=== PATIENT | female | born 1985 | race Two or more races ===

== ENCOUNTER → 2023-05-13 | Outpatient (CLI) | payer MEDICAID | END | disposition home or self-care (01) | LOC: Rad HDHVI 08:44 | PROVIDERS: ATTEND Internal Medicine Cardiovascular Disease | DX: Z01.818 Encounter for other preprocedural examination (principal); I51.7 Cardiomegaly | CPT/HCPCS: 93306 ==

== ENCOUNTER → 2023-05-17 | Outpatient (CLI) | payer MEDICAID ==
[~2023-05-17] VITALS: Ht 160 cm; Wt 110.7 kg
== END | disposition home or self-care (01) ==
LOC: Rad HDHVI 08:14
PROVIDERS: ATTEND Internal Medicine Cardiovascular Disease
DX: Z01.810 Encounter for preprocedural cardiovascular examination (principal)
CPT/HCPCS: 78452; 93017; 96374; A9500

== ENCOUNTER 2024-01-27 21:46 | Emergency (ER) | payer MEDICAID ==
[~2024-01-27] VITALS: Ht 160 cm; Wt 107.6 kg
[2024-01-27] MEDS: IPRATROPIUM BROM 0.5 MG/2.5ML INH SOL NEB ONE (22:14)
[2024-01-27] MEDS: ALBUTEROL SULF 2.5 MG/0.5ML(0.5%) NEB SOLN NEB ONE (22:14)
[2024-01-27] MEDS ORDERED: methylPREDNISolone SOD SUCC 125 MG/2 ML VL IV ONE (22:15)
[2024-01-27 23:02] LABS: Urine Bacteria None Seen /hpf (None Seen)
[2024-01-27 23:04] LABS: Basophils # (auto) 0 10 ^3/uL (0-0.2); Basophils % (auto) 0.3 % (0.0-2.0); Eosinophils # (auto) 0.3 10 ^3/uL (0-0.8); Eosinophils % (auto) 2.3 % (0.0-7.0); Hemoglobin 14.4 g/dL (12.2-16.2); Lymphocytes # (auto) 2.9 10 ^3/uL (0.4-5.4); Lymphocytes % (auto) 22.1 % (10.0-50.0); Mean Corpuscular Hemoglobin 31.2 pg (28.0-32.0); Mean Corpuscular Hgb Conc. 34.3 g/dL (32.0-36.0); Mean Corpuscular Volume 91.1 fL (80.0-100.0); Monocytes # (auto) 0.8 10 ^3/uL (0-1.3); Monocytes % (auto) 6.1 % (0.0-12.0); Neutrophils # (auto) 9.1 10 ^3/uL (1.6-8.6); Neutrophils % (auto) 69.2 % (37.0-80.0); Nucleated Red Blood Cells % 0.1 %; Platelet Count (auto) 328 10^3/uL (140-450); Red Blood Cells 4.61 10^6/uL (4.0-5.20); Red Cell Distribution Width 14.3 % (11.8-14.3); White Blood Cell 13.2 10^3/uL (4.4-10.8)
[2024-01-27 23:14] LABS: Urine Blood 3+ /uL (Negative); Urine Clarity Clear (Clear); Urine Color Light-Yellow (Yellow); Urine Protein, UAD Negative (Negative); Urine Urobilinogen Normal (Negative); Urine WBC 8 /hpf (0 - 5); Urine pH 6.5 (5.0-9.0)
[2024-01-27 23:22] LABS: Alanine Aminotransferase 17 U/L (7-40); Albumin 4.8 g/dL (3.2-4.8); Alkaline Phosphatase 71 U/L (46-116); Anion Gap 7 (5-15); Aspartate Aminotransferase 13 U/L (13-40); Bilirubin, Total 0.4 mg/dL (0.2-1.0); Blood Urea Nitrogen 18 mg/dL (9-23); Calcium 9.9 mg/dL (8.7-10.4); Carbon Dioxide 25 mmol/L (20-31); Chloride 106 mmol/L (98-107); Glucose 102 mg/dL (74-106); Potassium 3.6 mmol/L (3.5-5.1); Sodium 138 mmol/L (136-145); Total Protein 7.8 g/dL (5.7-8.2)
[2024-01-28 00:21] LABS: Base Excess 0.2 mmol/L (-2.0-3.0)
[2024-01-28] MEDS ORDERED: PRED20TA2 PO (01:30)
[2024-01-28] MEDS ORDERED: ALBU108A5 IN (01:30)
[2024-01-28] MEDS: methylPREDNISolone SOD SUCC 125 MG/2 ML VL IM ONE (02:17)
[2024-01-28 02:23] VITALS: BP 127/87; PULSE 92; RESP 16; TEMP 97.8; O2SAT 100
== END 2024-01-28 02:24 | disposition home or self-care (01) ==
LOC: ER 21:46
DX: J45.901 Unspecified asthma with (acute) exacerbation (principal); R10.2 Pelvic and perineal pain; R06.00 Dyspnea, unspecified; Z90.49 Acquired absence of other specified parts of digestive tract; Z90.89 Acquired absence of other organs; Z79.899 Other long term (current) drug therapy
CPT/HCPCS: 36415; 36600; 71045; 80053; 81001; 82805; 83605; 83735; 83880; 84702; 85025; 85379; 93005; 94640; 96372; 99285; J2919

== ENCOUNTER 2024-10-03 20:18 | Emergency (ER) | payer MEDICAID ==
[~2024-10-03] VITALS: Ht 160 cm; Wt 94.4 kg
[~2024-10-03 20:18] MED LIST: ALBU108A5 IN; PRED20TA2 PO
[2024-10-03 20:45] LABS: Basophils # (auto) 0.1 10 ^3/uL (0-0.2); Basophils % (auto) 0.5 % (0.0-2.0); Eosinophils # (auto) 0.2 10 ^3/uL (0-0.8); Eosinophils % (auto) 1.5 % (0.0-7.0); Hematocrit 43.5 % (36.0-46.0); Hemoglobin 14.4 g/dL (12.2-16.2); Lymphocytes # (auto) 3.9 10 ^3/uL (0.4-5.4); Lymphocytes % (auto) 28.7 % (10.0-50.0); Mean Corpuscular Hgb Conc. 33.1 g/dL (32.0-36.0); Mean Corpuscular Volume 87.6 fL (80.0-100.0); Monocytes # (auto) 0.7 10 ^3/uL (0-1.3); Monocytes % (auto) 4.9 % (0.0-12.0); Neutrophils # (auto) 8.7 10 ^3/uL (1.6-8.6); Neutrophils % (auto) 64.4 % (37.0-80.0); Platelet Count (auto) 321 10^3/uL (140-450); Red Blood Cells 4.97 10^6/uL (4.0-5.20); Red Cell Distribution Width 14.9 % (11.8-14.3); White Blood Cell 13.5 10^3/uL (4.4-10.8)
[2024-10-03 21:02] LABS: Alanine Aminotransferase 16 U/L (7-40); Albumin 4.7 g/dL (3.2-4.8); Alkaline Phosphatase 70 U/L (46-116); Anion Gap 9 (5-15); Aspartate Aminotransferase 17 U/L (<34); BUN/Creatinine Ratio 21.8 (10.0-20.0); Bilirubin, Total 0.4 mg/dL (0.2-1.0); Blood Urea Nitrogen 17 mg/dL (9-23); Calcium 9.4 mg/dL (8.7-10.4); Carbon Dioxide 25 mmol/L (20-31); Chloride 106 mmol/L (98-107); Glucose 93 mg/dL (74-106); Potassium 3.7 mmol/L (3.5-5.1); Sodium 140 mmol/L (136-145); Total Protein 7.8 g/dL (5.7-8.2)
[2024-10-03 21:13] LABS: Lipase 55 U/L (12-53)
--- NOTE | 2024-10-03 21:17 | ED.PDOC ---
History of Present Illness HPI Comments 39 y/o obese F presents with 1x day history of nonradiating, RUQ abdominal pain. Patient reports on progressively worsening, constant pain following initial unprovoked onset, last night. She reports only significant history of asthma, arthritis, partial thyroidectomy, and cholecystectomy she received 16x years ago. Patient denies having nausea, vomiting, diarrhea, constipation, urinary symptoms, fever, chills, or further associated symptoms. Chief Complaint: Abdominal Pain Time Seen by MD: 21:00 Reviewed Notes: Nurses Notes, Medications, Allergies Allergies: Coded Allergies: NO KNOWN ALLERGIES (Unverified , 01/27/24) Home Meds Active Scripts Gabapentin (Once-Daily) (Gabapentin) 300 Mg Tab, 300 MG PO Q6HP PRN, #60 TAB Prov:KIRA SINGH MD 10/03/24 Sulfamethoxazole W/Trimethopri (Bactrim Ds Tablet) 1 Tab Tb, 1 TAB PO BID for 7 Days, #14 TAB Prov:KIRA SINGH MD 10/03/24 Prednisone (Prednisone) 20 Mg Tab, 20 MG PO DAILY for 5 Days, #5 TAB Prov:VITO GREEN DO 01/28/24 Albuterol Sulfate (Albuterol Sulfate Hfa) 108 Mcg/Act Aer, 108 MCG IN Q4HPRN PRN for 5 Days, #1 AER Prov:VITO GREEN DO 01/28/24 Information Source: Patient Mode of Arrival: Ambulatory Severity: Moderate Timing: Hours Duration: Since onset Prehospital treatment: None Past Medical History PAST MEDICAL HISTORY: Arthritis, Asthma Surgical History: Cholecystectomy, Thyroidectomy (partial ) 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 Hx Family History Family History: Unknown Social History Smoker: Non-Smoker Alcohol: Denies ETOH Use Drugs: Denies Drug Use Lives In: Home All Other Systems: Reviewed and Negative (Comprehensive systems review obtained and negative except for what is stated in the HPI.) Physical Exam General Appearance: Mild Distress, Obese HEENT: Normal ENT Inspection, Pharynx Normal, TMs Normal Neck: Full Range of Motion, Non-Tender, Normal, Normal Inspection Respiratory: Chest Non-Tender, Lungs Clear, No Accessory Muscle Use, No Respiratory Distress, Normal Breath Sounds Cardiovascular: No Edema, No JVD, No Murmur, No Gallop, Normal Peripheral Pulses, Regular Rate/Rhythm Breast Exam: Deferred Gastrointestinal: No Organomegaly, Non Tender, No Pulsatile Mass, Normal Bowel Sounds, Soft Genitalia: Deferred Pelvic: Deferred Rectal: Deferred Extremities: No calf tenderness, Normal capillary refill, Normal inspection, Normal range of motion, Non-tender, No pedal edema Musculoskeletal : Apperance: Normal Neurologic: Alert, 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 Was a procedure done?: No Differential Dx Considerations may include: cholelithiasis, PUD, GERD, gastritis, gastroenteritis, viral syndrome, , nephrolithiasis, among others X-Ray, Labs, Meds, VS Vital Signs Date Time Temp Pulse Resp B/P (MAP) Pulse Ox O2 Delivery O2 Flow Rate FiO2 10/03/24 22:37 90 18 97 Room Air 10/03/24 22:37 97.8 90 18 114/57 (76) 97 97.8 10/03/24 21:00 97.9 99 16 108/41 (63) 98 97.9 Lab Test 10/03/24 21:12 10/03/24 20:36 Range/Units Urine Color Light-yellow Yellow Urine Clarity Clear Clear Urine pH 5.5 5.0-9.0 Urine Specific [place] 1.027 1.001-1.035 Urine Protein Negative Negative Urine Ketones Negative Negative Urine Blood Negative Negative /uL Urine Nitrite Negative Negative Urine Bilirubin Negative Negative Urine Urobilinogen Normal Negative mg/dL Urine Leukocyte Esterase 1+ Negative /uL Urine RBC 1 0 - 4 /hpf Urine Microscopic WBC 4 0-5 /HPF Urine Squamous Epithelial Cells Few <5 /hpf Urine Bacteria None seen None Seen /hpf Urine Glucose Normal Normal mg/dL White Blood Count 13.5 H 4.4-10.8 10^3/uL Red Blood Count 4.97 4.0-5.20 10^6/uL Hemoglobin 14.4 12.2-16.2 g/dL Hematocrit 43.5 36.0-46.0 % Mean Corpuscular Volume 87.6 80.0-100.0 fL Mean Corpuscular Hemoglobin 29.0 28.0-32.0 pg Mean Corpuscular Hemoglobin Concent 33.1 32.0-36.0 g/dL Red Cell Distribution Width 14.9 H 11.8-14.3 % Platelet Count 321 140-450 10^3/uL Mean Platelet Volume 8.4 6.9-10.8 fL Neutrophils (%) (Auto) 64.4 37.0-80.0 % Lymphocytes (%) (Auto) 28.7 10.0-50.0 % Monocytes (%) (Auto) 4.9 0.0-12.0 % Eosinophils (%) (Auto) 1.5 0.0-7.0 % Basophils (%) (Auto) 0.5 0.0-2.0 % Neutrophils # (Auto) 8.7 H 1.6-8.6 10 ^3/uL Lymphocytes # (Auto) 3.9 0.4-5.4 10 ^3/uL Monocytes # (Auto) 0.7 0-1.3 10 ^3/uL Eosinophils # (Auto) 0.2 0-0.8 10 ^3/uL Basophils # (Auto) 0.1 0-0.2 10 ^3/uL Nucleated Red Blood Cells 0.0 % Sodium Level 140 136-145 mmol/L Potassium Level 3.7 3.5-5.1 mmol/L Chloride Level 106 98-107 mmol/L Carbon Dioxide Level 25 20-31 mmol/L Anion Gap 9 5-15 Blood Urea Nitrogen 17 9-23 mg/dL Creatinine 0.78 0.550-1.02 mg/dL Glomerular Filtration Rate Calc 98 >90 mL/min BUN/Creatinine Ratio 21.8 H 10.0-20.0 Serum Glucose 93 74-106 mg/dL Calcium Level 9.4 8.7-10.4 mg/dL Total Bilirubin 0.4 0.2-1.0 mg/dL Aspartate Amino Transferase (AST) 17 <34 U/L Alanine Aminotransferase (ALT) 16 7-40 U/L Alkaline Phosphatase 70 46-116 U/L Total Protein 7.8 5.7-8.2 g/dL Albumin 4.7 3.2-4.8 g/dL Lipase 55 H 12-53 U/L Current Medications Medications (Trade) Dose Ordered Sig/Elfego Route Start Time Stop Time Status Last Admin Ondansetron HCl (Zofran Po) 4 mg ONCE ONCE PO 10/03/24 20:30 10/03/24 20:31 DC 10/03/24 22:36 Al Hydrox/Mg Hydrox/Simethicone (Maalox Plus) 30 ml ONCE ONCE PO 10/03/24 20:30 10/03/24 20:31 DC 10/03/24 22:34 Famotidine (Pepcid Tablet) 20 mg ONCE ONCE PO 10/03/24 20:30 10/03/24 20:31 DC 10/03/24 22:36 Acetaminophen/ Hydrocodone Bitart ([place] 10/325MG Tab) 1 tab ONCE ONCE PO 10/03/24 21:15 10/03/24 21:16 DC 10/03/24 22:35 Ketorolac Tromethamine (Toradol Injection) 30 mg ONCE ONCE IM 10/03/24 21:15 10/03/24 21:16 DC 10/03/24 22:36 Trimethoprim/ Sulfamethoxazole (Bactrim Ds Tablet) 1 tab ONCE ONCE PO 10/03/24 23:00 10/03/24 23:01 DC 10/03/24 23:24 Time of 1ST Reevaluation: 21:30 Reevaluation 1ST: Unchanged Patient Education/Counseling: Diagnosis, Treatment, Need For Follow Up Family Education/Counseling: No Family Present SEPSIS Sepsis Screen Orders/Vitals/Labs Physician Orders Ct Ab Pel Wo Con-No Oral Or Iv (10/03/24 21:09) Vital Signs Date Time Temp Pulse Resp B/P (MAP) Pulse Ox O2 Delivery O2 Flow Rate FiO2 10/03/24 22:37 90 18 97 Room Air 10/03/24 22:37 97.8 90 18 114/57 (76) 97 97.8 10/03/24 21:00 97.9 99 16 108/41 (63) 98 97.9 Laboratory Tests Test 10/03/24 20:36 White Blood Count 13.5 10^3/uL (4.4-10.8) H Medications Medications Dose Ordered Sig/Elfego Route Start Time Stop Time Status Last Admin Dose Admin Acetaminophen/ Hydrocodone Bitart 1 tab ONCE ONCE PO 10/03/24 21:15 10/03/24 21:16 DC 10/03/24 22:35 Al Hydrox/Mg Hydrox/Simethicone 30 ml ONCE ONCE PO 10/03/24 20:30 10/03/24 20:31 DC 10/03/24 22:34 Famotidine 20 mg ONCE ONCE PO 10/03/24 20:30 10/03/24 20:31 DC 10/03/24 22:36 Ketorolac Tromethamine 30 mg ONCE ONCE IM 10/03/24 21:15 10/03/24 21:16 DC 10/03/24 22:36 Ondansetron HCl 4 mg ONCE ONCE PO 10/03/24 20:30 10/03/24 20:31 DC 10/03/24 22:36 Trimethoprim/ Sulfamethoxazole 1 tab ONCE ONCE PO 10/03/24 23:00 10/03/24 23:01 DC 10/03/24 23:24 Departure 1 Departure Time of Disposition: 23:00 Impression: Primary Impression: Acute right flank pain Additional Impression: UTI (urinary tract infection) Disposition: HOME / SELF CARE / HOMELESS Condition: Stable e-Prescriptions Gabapentin (Once-Daily) (Gabapentin) 300 Mg Tab 300 MG PO Q6HP PRN, #60 TAB Prov: KIRA SINGH MD 10/03/24 Sulfamethoxazole W/Trimethopri (Bactrim Ds Tablet) 1 Tab Tb 1 TAB PO BID for 7 Days, #14 TAB Prov: KIRA SINGH MD 10/03/24 Discharged With: Self Critical Care Note Critical Care Time?: No Stability Stability form required: No Heart Score Heart Score: Heart Score Response (Comments) Value History N/A 0 EKG N/A 0 Age N/A 0 Risk Factors N/A 0 Troponin N/A 0 Total 0 I personally scribed for KIRA SINGH MD ([email or web address]) on 10/03/24 at 21:16. Electronically submitted by Ashvin Montalvo ([email or web address]). KIRA SINGH MD Oct 03, 2024 21:16
--- NOTE | 2024-10-03 21:52 | DVH ---
Exam: CT CT AB PEL WO CON-NO ORAL OR IV History: right flank pain Comparison Study: None Technique: Multidetector spiral CT of the abdomen was performed from lung bases to pubic symphysis. I maging was performed without IV contrast. Axial, coronal and sagittal multiplanar reformats were obta ined from the axial data set by the technologist. Radiation Dose : 1. Abdomen/Pelvis: CTDIvol 17.9 mGy, DLP 1131.74 mGy*cm. Findings: Evaluation of solid organs is limited due to lack of intravenous contrast use. Lung Bases: No acute or significant lung base finding. Normal heart size. No pleural or pericardial effusion. Liver: The liver is normal in size. No focal lesions. Gallbladder and Biliary Tree: Gallbladder is surgically absent. Spleen: Unremarkable Pancreas: The pancreas is grossly normal in appearance. Adrenal Glands: Unremarkable Kidneys: Kidneys are grossly normal without calculi or hydronephrosis. Bladder: Grossly unremarkable for degree of distention. Bowel: No bowel obstruction. Colonic diverticulosis without CT evidence of diverticulitis. The appe ndix is normal. Tiny fat containing umbilical hernia. Ascites: Absent Lymphadenopathy: No mesenteric, retroperitoneal or periportal lymphadenopathy. Abdominal Wall and Mesentery: Unremarkable. Vasculature: The visualized abdominal aorta is normal in size and caliber. Evaluation of abdominal a nd pelvic vessels is limited due to lack of intravenous contrast. Pelvic Organs: Unremarkable Musculoskeletal: No aggressive focal bony lesions, acute fractures or dislocation. IMPRESSION: 1. No acute abdominal or pelvic findings. 2. Incidental findings as detailed. Radiation optimization: All CT scans at this facility use at least one of these dose optimization lucina hniques: automated exposure control mA and/or kV adjustment per patient size (includes targeted exam s where dose is matched to clinical indication) or iterative reconstruction.
[2024-10-03 22:01] LABS: Urine Bacteria None Seen /hpf (None Seen)
[2024-10-03 22:28] LABS: Urine Blood Negative /uL (Negative); Urine Clarity Clear (Clear); Urine Color Light-Yellow (Yellow); Urine Protein, UAD Negative (Negative); Urine Specific Gravity 1.027 (1.001-1.035); Urine Squamous Epithelial Cell FEW /hpf (<5); Urine Urobilinogen Normal (Negative); Urine WBC 4 /HPF (0-5); Urine pH 5.5 (5.0-9.0)
[2024-10-03] MEDS: MAALOX PLUS or MAALOX 30 ML PO ONE (22:34)
[2024-10-03] MEDS: HYDROcodone-ACET 10/325MG TAB PO ONE (22:35)
[2024-10-03] MEDS: FAMOTIDINE 20 MG TAB PO ONE (22:36)
[2024-10-03] MEDS: ONDANSETRON ODT 4 MG TAB PO ONE (22:36)
[2024-10-03] MEDS: KETOROLAC TROMETH 30 MG/ML 1ML VIAL IM ONE (22:36)
[2024-10-03 22:37] VITALS: BP 114/57; PULSE 90; RESP 18; TEMP 97.8; O2SAT 97
[2024-10-03] MEDS ORDERED: GABA300T4 PO (22:52)
[2024-10-03] MEDS ORDERED: BACDST PO (22:52)
[2024-10-03] MEDS: SULFAMETHOX W/TRIMETH(800/160MG) DS TAB PO ONE (23:24)
== END 2024-10-03 23:25 | disposition home or self-care (01) ==
LOC: ER 20:18
DX: N39.0 Urinary tract infection, site not specified (principal); R10.11 Right upper quadrant pain; M19.90 Unspecified osteoarthritis, unspecified site; J45.909 Unspecified asthma, uncomplicated; E66.9 Obesity, unspecified; Z90.89 Acquired absence of other organs; Z90.49 Acquired absence of other specified parts of digestive tract; Z79.52 Long term (current) use of systemic steroids; Z79.899 Other long term (current) drug therapy; Z68.36 Body mass index [BMI] 36.0-36.9, adult
CPT/HCPCS: 36415; 74176; 80053; 81001; 83690; 85025; 96372; 99285; J1885; Q0162